=== PATIENT | female | born 1980 ===

== ENCOUNTER 2017-04-20 10:56 | Day surgery (SDC) | payer BC, OTHER ==
[~2017-04-20 10:56] MED LIST: Buffered Lidocaine 0.9% SYRIN* 5 ML/SYR SYRINGE INTRADERM ONE; Dexamethasone IV* 4 MG/ML 1 ML (4 MG) IV SLOW PU ONE
[2017-04-20] MEDS ORDERED: ceFAZolin 2 GM in 100 MLS NS (*) BAG IVPB ONE (11:04)
[2017-04-20] MEDS ORDERED: fentaNYL* 50 MCG/ML 2 ML VIAL (100 MCG VIAL) ONE (12:12)
[2017-04-20] MEDS ORDERED: Midazolam* 1 MG/ML 2 ML VIAL (2 MG) ONE (12:12)
[2017-04-20] MEDS ORDERED: Scopolamine 1.5 mg* PATCH TRANSDERM PRN (13:01)
[2017-04-20] MEDS ORDERED: Ondansetron INJ* 2 MG/ML VIAL IV PRN (13:01)
[2017-04-20] MEDS ORDERED: Nalbuphine* 20 MG/ML 1 ML VIAL IV PRN (13:01)
[2017-04-20] MEDS ORDERED: diPHENhydraMINE IV* 50 MG/ML 1 ml VIAL (BENADRYL) IV PRN (13:01)
[2017-04-20] MEDS ORDERED: DiMENhydriNATE IV* 50 MG/ML VIAL IV PUSH PRN (13:01)
[2017-04-20] MEDS ORDERED: Naloxone* 0.4 MG/ML 1 ML VIAL IV PRN (13:01)
[2017-04-20] MEDS ORDERED: fentaNYL* 50 MCG/ML 2 ML VIAL (100 MCG VIAL) IV PRN (13:01)
[2017-04-20] MEDS ORDERED: Levalbuterol 0.63MG/3ML NEB* UNIT OF USE INH PRN (13:01)
[2017-04-20] MEDS ORDERED: PROCHLORPERAZINE INJ 5 MG/ML 2 ML VIAL IV PRN (13:01)
[2017-04-20] MEDS ORDERED: Acetaminophen TAB* 325 MG PO PRN (13:01)
[2017-04-20] MEDS ORDERED: HYDROcodone/ACETAMIN 5-325 MG* 1 TAB PO PRN (13:01)
[2017-04-20] MEDS ORDERED: Scopolamine 1.5 mg* PATCH ONE (13:25)
[2017-04-20] MEDS ORDERED: Rocuronium* 10 MG/ML VIAL ONE (13:41)
[2017-04-20] MEDS ORDERED: Bupivacaine 0.5% SDV PF* 10-30ML VIAL ONE (14:01)
[2017-04-20] MEDS ORDERED: Famotidine IV* 10 MG/ML 2 ML (20 mg) ONE (14:02)
[2017-04-20] MEDS ORDERED: Dexamethasone IV* 4 MG/ML 1 ML (4 MG) ONE (14:02)
[2017-04-20] MEDS ORDERED: Propofol* 10 MG/ML 20 ML BTL IV PUSH ONE (14:02)
[2017-04-20] MEDS ORDERED: Ketorolac INJ* 30 MG/ML 1 ML VIAL ONE (14:02)
[2017-04-20] MEDS ORDERED: Ondansetron INJ* 2 MG/ML VIAL ONE (14:02)
[2017-04-20] MEDS ORDERED: Lidocaine 2% EPI 1:200000 MPF* 20 ML VIAL ONE (14:11)
[2017-04-20] MEDS ORDERED: Bupivacaine 0.25% SDV* 30 ML ONE (16:34)
[2017-04-20] MEDS ORDERED: DiMENhydriNATE IV* 50 MG/ML VIAL ONE (17:19)
[2017-04-20 17:51] VITALS: BP 115/61
--- NOTE | 2017-04-21 16:08 | OP ---
DATE OF OPERATION: 04/20/17 - [facility] DATE OF : 76 SURGEON: Mika Brown MD POOL HALL INSPECTOR: SKYE Pascal. An information services assistant was needed for the entirety of the procedure to aid in positioning of the arm, passage of arthroscopic equipment into and out of the portals and instrumentation. ANESTHESIOLOGIST: Dr. Spears. ANESTHESIA: Peripheral nerve block with general. PRE-OP DIAGNOSES: 1. Right shoulder impingement syndrome with possible rotator cuff tear. 2. Right acromioclavicular degenerative joint disease. POST-OP DIAGNOSES: 1. Right severe type 2 superior labrum anterior to posterior tear. 2. Right shoulder impingement syndrome. 3. Right acromioclavicular degenerative joint disease. OPERATIVE PROCEDURE: 1. Diagnostic right shoulder arthroscopy. 2. Repair of right shoulder type 2 SLAP tear with Tellez and Nephew suture anchors. 3. Right shoulder debridement. 4. Right shoulder subacromial decompression with acromioplasty. 5. Open right distal clavicle excision. INDICATIONS: June is 36 years old. She has had progressive disabling right shoulder pain. She has a lot of clicking and catching and popping. We obtained an MRI, which showed some degeneration at the superior labrum as well as rotator cuff tendinopathy as well as significant acromioclavicular degenerative joint disease. I talked to her about the proposed operation. She wanted to proceed. She understood the risks of stiffness and loss of strength. ESTIMATED BLOOD LOSS: 20 mL. COMPLICATIONS: None. FINDINGS: See above and below. DESCRIPTION OF PROCEDURE: June was seen in the preoperative holding area. We came back to the operating room where she received her peripheral nerve block. Anesthesia was then induced. She was then positioned upright in the beach chair position. The neck was placed in a good position. The right shoulder was prepped and draped in the usual fashion. A time-out was performed. I began by developing a posterior portal 2 cm inferior and medial to the posterolateral corner of the acromion. The glenohumeral joint was cannulated. The camera was introduced at the posterior portal. An anterior portal was made in the rotator interval using outside-in technique. A 5.5 mm Tellez and Nephew cannula was placed. I then brought in my radiofrequency ablator and began the debridement. This was combined with the shaver. A very large type 2 SLAP tear was immediately noted. It was very unstable and nearly completely detached. The biceps was still firmly adherent to the superior labrum and did not look like a large amount of synovitis on it. The subscap attachment was intact. The rotator cuff did not look torn. It was a little thin but not torn. The anterior inferior and posterior inferior labrums were well attached. The inferior recess was without foreign bodies. At this point, I debrided back my SLAP tear to nice stable margin. I decided that she is young enough and it was stable enough that we ought to try to repair it. I brought in my shaver and debrided back the superior glenoid back to bleeding bone. I placed an anterolateral portal through again using outside-in technique. This was placed just anterior to the biceps tendon and just anterior to the rotator cuff leading edge. An 8.5 mm cannula was placed. A 5.5 mm cannula was switched out for an 8.5 mm cannula anteriorly. At this point, I used my suture passer to pass the nitinol wire through the 11 o'clock position just posterior to the biceps tendon. Heavy braided suture was passed. This was then retrieved and then in luggage tag fashion this was looped around the labrum. I placed a second stitch just at the 1 o'clock position in similar fashion just anterior to the biceps attachment. I then placed a third stitch at the 10 o'clock position. I used the knotless Tellez and Nephew anchor PushLock to first attach and secure my suture anchor at the 11 o'clock position, I then did the one at the 1 o'clock position and then the one at the 10 o'clock position. It was looking nice. Ultimately, I decided that it needed one more, just a bit more posterior it was still quite unstable, so I therefore made a small trans rotator cuff portal just big enough to place the drill bit for the anchor. I passed a final braided suture through the labrum and then used a final PushLock type anchor to secure the posterior superior labrum at about the 10 o'clock position just a little bit more posterior than my prior anchors. This completed the repair. It was looking very nice. Everything was looking very nicely reattached. I went ahead and cleaned up the joint one more time and then moved on to the subacromial space. All the arthroscopic equipment was removed out of the glenohumeral joint. The camera was placed in the subacromial space. My lateral portal was made 2 cm lateral to the anterolateral edge of the acromion. The radiofrequency ablator was introduced into the portal. Very dense subacromial bursa was debrided with the combination of the radiofrequency ablator and the shaver. The rotator cuff was inspected from above and it did not look torn. The bursal tissue was debrided off of the undersurface of the acromion. The gisella was brought in and an acromioplasty was performed. At this point, all the arthroscopic equipment was removed. I made 2 to 3 cm longitudinal incision over the superior AC joint. The dissection was carried down and some full thickness flaps were raised off the superior acromioclavicular ligament. These were incised longitudinally. A couple of baby Hohmanns were placed around the distal aspect of the clavicle and a sagittal saw was used to excise the most distal 1 cm of the clavicle. I felt underneath the remaining distal clavicle and under the acromion there were no bony spurs, so I irrigated out the wound. The superior AC ligaments were repaired with 0 Vicryl suture. All the incisions were closed with 3-0 nylon suture. The operative portals were infiltrated with 0.25% plain Marcaine. The wounds were dressed with Xeroform, 4x4s, ABDs, and foam tape. A cooling pack was applied. She was then awoken up and taken to the recovery room in stable condition. [id number] #: [id number] RICHARD
[2017-04-23] MEDS ORDERED: Scopolamine PATCH Remove* 1 NOTE MISC PATCH OFF ONE (13:01)
== END 2017-04-20 18:51 | disposition home or self-care (01) ==
LOC: OR 10:56
PROVIDERS: ATTEND Orthopaedic Surgery Hand Surgery
DX: M75.41 Impingement syndrome of right shoulder (principal); M19.111 Post-traumatic osteoarthritis, right shoulder; Z68.41 Body mass index [BMI] 40.0-44.9, adult; M79.7 Fibromyalgia; Z87.891 Personal history of nicotine dependence; F41.8 Other specified anxiety disorders; M54.2 Cervicalgia; G43.909 Migraine, unspecified, not intractable, without status migrainosus
CPT/HCPCS: 81025; 88304; 88311; A9270-GY; C1713; J1100; J1240; J1885; J2250; J2405; J2704; J3010